=== PATIENT | male | born 1975 | race Hispanic/Latino ===

== ENCOUNTER 2019-06-27 04:44 | Inpatient (IN) | payer OTHER ==
[~2019-06-27] VITALS: Ht 175.3 cm; Wt 202.8 kg
[~2019-06-27 04:44] MED LIST: DILT120C89 PO; FURO40TA7 PO; RIVA20TA PO
[2019-06-27] MEDS ORDERED: DILTIAZEM HCL 125 MG/25 ML VIAL IV ONE ×2 (05:30→05:35)
[2019-06-27] MEDS ORDERED: SODIUM CHLORIDE 0.9% 100 ML IV ONE (05:33)
[2019-06-27] MEDS ORDERED: SODIUM CHLORIDE 0.9% 1000ML 0 ML IV ONE (05:38)
[2019-06-27 05:39] LABS: BASOPHILS % (AUTO) 1.1 % (0.0-5.0); EOSINOPHILS % (AUTO) 2.6 % (0.0-8.0); HEMATOCRIT 41.7 % (42-54); LYMPHOCYTES % (AUTO) 20.1 % (21.0-51.0); MEAN CORPUSCULAR HEMOGLOBIN 30.2 pg (27.0-33.0); MEAN CORPUSCULAR HGB CONC 32.7 g/dL (32.0-36.0); MEAN CORPUSCULAR VOLUME 92.2 fL (79-99); MONOCYTES % (AUTO) 13.5 % (3.0-13.0); NEUTROPHILS % (AUTO) 62.7 % (40.0-77.0); NUCLEATED RED BLOOD CELLS 0.1 % (0.0-0.19); PLATELET COUNT (AUTO) 254 K/uL (130-400); RED BLOOD CELL COUNT(AUTO) 4.52 MIL/uL (4.50-6.20); RED CELL DISTRIBUTION WIDTH 16.1 % (11.0-15.5)
[2019-06-27 05:43] LABS: CREATININE 0.8 mg/dL (0.5-1.5); POTASSIUM 3.8 mmol/L (3.5-5.1)
[2019-06-27 05:51] LABS: INR 1.15 (0.85-1.15); PARTIAL THROMBOPLASTIN TIME 27.5 SEC (26.3-35.5)
[2019-06-27 05:52] LABS: B-TYPE NATRIURETIC PEPTIDE 298 pg/mL (0-100)
[2019-06-27 05:57] LABS: BILIRUBIN,TOTAL 0.4 mg/dL (0.2-1.0); TOTAL PROTEIN, SERUM 6.9 g/dL (6.0-8.3)
[2019-06-27] MEDS ORDERED: LACTULOSE 20 GM/30 ML UDCUP PO PRN (07:45)
[2019-06-27] MEDS ORDERED: POTASSIUM CHLORIDE 10% ELIXIR 20 MEQ/15 ML UDCUP PO PRN (07:45)
[2019-06-27] MEDS ORDERED: ACETAMINOPHEN 325 MG TAB PO PRN ×2 (07:45)
[2019-06-27] MEDS: DILTIAZEM HCL 60 MG TABLET PO SCH ×3 (07:45→20:29)
[2019-06-27] MEDS ORDERED: ONDANSETRON HCL 4 MG/2 ML VIAL IVP PRN (07:45)
[2019-06-27] MEDS ORDERED: POTASSIUM CHLORIDE 20MEQ/100ML 100 ML IV PRN (07:45)
[2019-06-27] MEDS ORDERED: DIPHENHYDRAMINE HCL 25 MG CAPSULE PO PRN (07:45)
[2019-06-27] MEDS ORDERED: LIDOCAINE HCL-MPF 1% 2ML VIAL IJ PRN (07:45)
[2019-06-27] MEDS ORDERED: DiphenhydrAMINE HCL 50 MG/ML VIAL IVP PRN (07:45)
[2019-06-27] MEDS ORDERED: DILTIAZEM 125MG+100 ML NS 125 ML IV SCH (07:45)
[2019-06-27] MEDS: FUROSEMIDE 10 MG/ML 2ML VIAL IVP SCH ×3 (07:45→18:13)
[2019-06-27] MEDS ORDERED: HYDROCODONE/ACETAMINOPHEN 5/325 MG TAB PO PRN (08:45)
[2019-06-27] MEDS ORDERED: MORPHINE SULFATE 4 MG/1ML SYG IV PRN (08:45)
[2019-06-27] MEDS: FAMOTIDINE 20MG TAB 20 MG TAB PO SCH ×2 (09:00→20:29)
[2019-06-27] MEDS ORDERED: ENOXAPARIN SODIUM 40 MG/0.4 ML SYRINGE SQ SCH (09:00)
[2019-06-27] MEDS ORDERED: DILTIAZEM HCL 60 MG TABLET ONE ×2 (09:47→14:40)
[2019-06-27] MEDS ORDERED: FUROSEMIDE 10 MG/ML 2ML VIAL ONE (09:47)
[2019-06-27] MEDS ORDERED: IPRATROPIUM/ALBUTEROL SULFATE 3 ML SOLUTION IH PRN (10:00)
[2019-06-27 10:04] LABS: AMPHET/METH SCREEN,URINE NEGATIVE (NEGATIVE); BARBITURATE SCREEN, URINE NEGATIVE (NEGATIVE); BENZODIAZEPINES SCREEN,URINE NEGATIVE (NEGATIVE); CANNABINOID SCREEN,URINE POSITIVE (NEGATIVE); COCAINE SCREEN,URINE POSITIVE (NEGATIVE); OPIATE SCREEN,URINE NEGATIVE (NEGATIVE); PHENCYCLIDINE SCREEN,URINE NEGATIVE (NEGATIVE)
[2019-06-27] MEDS ORDERED: IPRATROPIUM/ALBUTEROL SULFATE 3 ML SOLUTION IH SCH (12:00)
[2019-06-27] MEDS: RIVAROXABAN 20 MG TABLET PO SCH (12:00)
--- NOTE | 2019-06-27 17:42 | NUR ---
cm note met with patient and states resides athome with father savanna. pt is independent with adls and ambulation, drives. provided with low income clinics info in the area, and also discussed importance of adhering to medication compliance and to abstain from alcohol and drug use, provided pt with list of resource of drug and alcohol recovery #s. [facility]. pt states he know what he needs to do and he will followup with resources. dc plan is back to home [place]. Addendum: 06/27/19 at 1744 by GUMARO APPIAH CM Amended: Links added.
[2019-06-27 17:52] VITALS: BP 131/98
--- NOTE | 2019-06-27 18:00 | NUR ---
RECEIVED FROM ED VIA STRETCHER ACCOMPANIED BY ED RN. PT. AAOX3, RESP.'S EVEN AND UNLABORED. DENIES ANY CURRENT PAIN. ORIENTED TO ROOM AND SURROUNDINGS. COMPLETE ASSESSMENT DONE. CALL LIGHT WITHIN REACH, VERBALIZED ABILITY TO USE. BED LOW, SIDE RAILS UP X2.
--- NOTE | 2019-06-27 18:15 | NUR ---
SPOKE WITH PT. RE:ALCOHOL USE, OBESITY, HEART FAILURE AND COCAINE USE, VERBALIZED UNDERSTANDING AND ALL QUESTIONS ANSWERED.
--- NOTE | 2019-06-27 18:25 | NUR ---
SPOKE WITH PT. AND PT.'S SISTER AT BEDSIDE RE:OBESITY, ALCOHOL CONSUMPTION, HEART FAILURE AND LACK OF COMPLIANCE WITH PRESCRIBED MEDICATIONS; PT. VERBALIZED UNDERSTANDING.
[2019-06-27 19:43] VITALS: BP 131/75
[2019-06-28] VITALS (8 sets, daily range): BP systolic 119–161; BP diastolic 58–95
[2019-06-28] MEDS ORDERED: FUROSEMIDE 10 MG/ML 2ML VIAL IVP SCH (02:00)
[2019-06-28] MEDS: DILTIAZEM HCL 60 MG TABLET PO SCH (03:19)
[2019-06-28 03:53] LABS: BASOPHILS % (AUTO) 0.9 % (0.0-5.0); EOSINOPHILS % (AUTO) 3.8 % (0.0-8.0); HEMATOCRIT 38.9 % (42-54); LYMPHOCYTES % (AUTO) 17.3 % (21.0-51.0); MEAN CORPUSCULAR HEMOGLOBIN 30.9 pg (27.0-33.0); MEAN CORPUSCULAR HGB CONC 33.5 g/dL (32.0-36.0); MEAN CORPUSCULAR VOLUME 92.3 fL (79-99); MONOCYTES % (AUTO) 15.1 % (3.0-13.0); NEUTROPHILS % (AUTO) 62.9 % (40.0-77.0); PLATELET COUNT (AUTO) 211 K/uL (130-400); RED BLOOD CELL COUNT(AUTO) 4.21 MIL/uL (4.50-6.20); RED CELL DISTRIBUTION WIDTH 16.2 % (11.0-15.5); WHITE BLOOD COUNT (AUTO) 7.3 K/uL (4.8-10.8)
[2019-06-28 04:06] LABS: CREATININE 0.8 mg/dL (0.5-1.5); POTASSIUM 3.4 mmol/L (3.5-5.1)
[2019-06-28] MEDS: POTASSIUM CHLORIDE 20 MEQ ERTAB PO PRN ×2 (05:37→08:17)
--- NOTE | 2019-06-28 07:17 | NUR ---
DR. Christine RODGERS IN ROOM SPEAKING WITH PT.
[2019-06-28] MEDS: FAMOTIDINE 20MG TAB 20 MG TAB PO SCH ×2 (08:15→20:06)
[2019-06-28] MEDS: FUROSEMIDE 40 MG TABLET PO SCH ×2 (08:16→16:38)
[2019-06-28] MEDS: DILTIAZEM HCL 120 MG CAP.SR.24H PO SCH (08:16)
[2019-06-28] MEDS: RIVAROXABAN 20 MG TABLET PO SCH (08:16)
[2019-06-28] MEDS ORDERED: RIVAROXABAN 20 MG TABLET PO SCH (09:00)
--- NOTE | 2019-06-28 15:40 | NUR ---
RD NOTIFICATION DX: AFIB WITH RVR, HEART FAILURE. HX: MORBID OBESE, HTN, DYSLIPIDEMIA. BMI IS 65.8; CLASSIFIED CLASS III MORBID OBESE. DIET: HEART HEALTHY. PO INTAKE 100% AND HAS GREAT APPETITE PER PT. TOLERATING DIET WELL. PT DOES NOT COOK AT HOME. HE USUALLY EATS FAST FOOD, OR IF HIS FAMILY COOKS THEY INVITE HIM OVER TO EAT. PT EATS 3-4 MEALS EVERYDAY. HE HAS NEVER TALKED TO A IGNITER ASSEMBLER/ RD IN THE PAST ABOUT HIS DIET PATTERNS. RD PROVIDED PT WITH HEART HEALTHY AND HEALTHY EATING DIET AND NUTRITION EDUCATION. PT ASKED QUESTIONS AND VERBALIZED UNDERSTANDING. HANDOUTS WERE LEFT WITH PT TO TAKE HOME AND USE REFERENCE. RD RECOMMENDS TO CONTINUE CURRENT DIET. RD PROVIDED HEALTHY EATING AND HEART HEALTHY DIET AND NUTRITION EDUCATION. RD WILL CONTINUE TO MONITOR AND FOLLOW UP NEEDED. THANK YOU. Addendum: 06/28/19 at [address] Amended: Links added.
--- NOTE | 2019-06-28 15:41 | NUR ---
DIET EDUCATION PT DOES NOT COOK AT HOME. HE USUALLY EATS FAST FOOD, OR IF HIS FAMILY COOKS THEY INVITE HIM OVER TO EAT. PT EATS 3-4 MEALS EVERYDAY. HE HAS NEVER TALKED TO A FACILITIES TECHNICIAN/ RD IN THE PAST ABOUT HIS DIET PATTERNS. EDWARD PROVIDED PT WITH HEART HEALTHY AND HEALTHY EATING DIET AND NUTRITION EDUCATION. PT ASKED QUESTIONS AND VERBALIZED UNDERSTANDING. HANDOUTS WERE LEFT WITH PT TO TAKE HOME AND USE REFERENCE. Addendum: 06/28/19 at [address] RD Amended: Links added.
[2019-06-29 03:55] VITALS: BP 137/70
[2019-06-29 03:55] LABS: HEMATOCRIT 39.6 % (42-54); LYMPHOCYTES % (AUTO) 19.5 % (21.0-51.0); MEAN CORPUSCULAR HEMOGLOBIN 30.4 pg (27.0-33.0); MEAN CORPUSCULAR HGB CONC 33.3 g/dL (32.0-36.0); MEAN CORPUSCULAR VOLUME 91.2 fL (79-99); MONOCYTES % (AUTO) 14.3 % (3.0-13.0); NEUTROPHILS % (AUTO) 62.2 % (40.0-77.0); NUCLEATED RED BLOOD CELLS 0.1 % (0.0-0.19); PLATELET COUNT (AUTO) 236 K/uL (130-400); RED BLOOD CELL COUNT(AUTO) 4.35 MIL/uL (4.50-6.20); RED CELL DISTRIBUTION WIDTH 15.9 % (11.0-15.5); WHITE BLOOD COUNT (AUTO) 7.5 K/uL (4.8-10.8)
[2019-06-29 04:14] LABS: BILIRUBIN,TOTAL 0.7 mg/dL (0.2-1.0); CREATININE 0.7 mg/dL (0.5-1.5); POTASSIUM 3.4 mmol/L (3.5-5.1); TOTAL PROTEIN, SERUM 7.2 g/dL (6.0-8.3)
[2019-06-29 04:23] LABS: B-TYPE NATRIURETIC PEPTIDE 67 pg/mL (0-100)
[2019-06-29] MEDS: POTASSIUM CHLORIDE 20 MEQ ERTAB PO PRN (05:36)
[2019-06-29 06:55] VITALS: BP 137/80
--- NOTE | 2019-06-29 07:45 | NUR ---
ASSESSMENT PT IS AAOX4 DENIES CP DENIES SOB DENIES NV NO COMPLAINTS, BREATHING PATTERN IS EVEN AND UNLABORED. RESTING IN BED. CALL LIGHT WITHIN REACH.
[2019-06-29] MEDS: DILTIAZEM HCL 120 MG CAP.SR.24H PO SCH (08:11)
[2019-06-29] MEDS: FAMOTIDINE 20MG TAB 20 MG TAB PO SCH (08:11)
[2019-06-29] MEDS: RIVAROXABAN 20 MG TABLET PO SCH (08:12)
[2019-06-29] MEDS: FUROSEMIDE 40 MG TABLET PO SCH (08:12)
[2019-06-29] MEDS ORDERED: POTASSIUM CHLORIDE 20 MEQ ERTAB PO SCH (09:00)
[2019-06-29] MEDS ORDERED: DILT120C89 PO ×2 (10:09)
[2019-06-29 10:56] VITALS: BP 126/80
--- NOTE | 2019-06-29 12:30 | NUR ---
DISCHARGE PT VERBALIZES DC INSTRUCTIONS UNDERSTANDING AGREES TO FOLLOW UP WITH DR RODGERS AND TAKE HIS MEDS ORDERED. ALL QUESTIONS ANSWERED, PIV REMOVED CATH TIP INTACT, TELE PACK REMOVED. ALL BELONGINGS GATHERED. DOWN VIA WC TO VEHICLE.
[2019-07-03] MEDS ORDERED: DILT120C12 PO ×2 (13:01)
== END 2019-06-29 13:00 | disposition home or self-care (01) | DRG 308 ==
LOC: EDH 04:44 → EDHIP 04:45 → 2DH 17:41
PROVIDERS: ADMIT Internal Medicine; ATTEND Internal Medicine
DX: I48.91 Unspecified atrial fibrillation (principal); I50.33 Acute on chronic diastolic (congestive) heart failure; E44.1 Mild protein-calorie malnutrition; Z68.44 Body mass index [BMI] 60.0-69.9, adult; M62.82 Rhabdomyolysis; I11.0 Hypertensive heart disease with heart failure; F10.10 Alcohol abuse, uncomplicated; F14.10 Cocaine abuse, uncomplicated; F19.10 Other psychoactive substance abuse, uncomplicated; G47.33 Obstructive sleep apnea (adult) (pediatric); F17.200 Nicotine dependence, unspecified, uncomplicated; E66.01 Morbid (severe) obesity due to excess calories; E78.5 Hyperlipidemia, unspecified; Z91.19 Patient's noncompliance with other medical treatment and regimen; Z91.14 Patient's other noncompliance with medication regimen; Z82.49 Family history of ischemic heart disease and other diseases of the circulatory system; Z79.01 Long term (current) use of anticoagulants
CPT/HCPCS: 36415; 71045; 80048; 80053; 80305; 82550; 82948; 83880; 84484; 85025; 85610; 85730; 93005; 94640; 94664; 99291; G0378; J1940; J3490; J7030

== ENCOUNTER 2019-06-30 15:18 | Inpatient (IN) | payer OTHER ==
[~2019-06-30] VITALS: Ht 175.3 cm; Wt 200.9 kg
[2019-06-30] MEDS ORDERED: ASPIRIN 325 MG TABLET ONE (15:23)
[2019-06-30] MEDS ORDERED: SODIUM CHLORIDE 0.9% 500 ML IV ONE (15:41)
[2019-06-30] MEDS ORDERED: DILTIAZEM HCL 125 MG/25 ML VIAL IV ONE (15:48)
[2019-06-30 16:11] LABS: BASOPHILS % (AUTO) 0.7 % (0.0-5.0); HEMATOCRIT 42.7 % (42-54); LYMPHOCYTES % (AUTO) 8.2 % (21.0-51.0); MEAN CORPUSCULAR HEMOGLOBIN 30.8 pg (27.0-33.0); MEAN CORPUSCULAR HGB CONC 33.7 g/dL (32.0-36.0); MEAN CORPUSCULAR VOLUME 91.4 fL (79-99); MONOCYTES % (AUTO) 14.9 % (3.0-13.0); NEUTROPHILS % (AUTO) 75.2 % (40.0-77.0); PLATELET COUNT (AUTO) 238 K/uL (130-400); RED BLOOD CELL COUNT(AUTO) 4.67 MIL/uL (4.50-6.20); RED CELL DISTRIBUTION WIDTH 16.1 % (11.0-15.5); WHITE BLOOD COUNT (AUTO) 10.6 K/uL (4.8-10.8)
[2019-06-30] MEDS ORDERED: DILTIAZEM 125MG+100 ML NS 125 ML IV SCH (16:15)
[2019-06-30 16:20] LABS: CREATININE 0.9 mg/dL (0.5-1.5); POTASSIUM 3.7 mmol/L (3.5-5.1)
[2019-06-30 16:21] LABS: INR 1.21 (0.85-1.15); PARTIAL THROMBOPLASTIN TIME 30.8 SEC (26.3-35.5); PROTHROMBIN TIME 12.6 SEC (9.6-11.6)
[2019-06-30 16:39] LABS: ALBUMIN 3.2 g/dL (3.5-5.0); BILIRUBIN,TOTAL 1.2 mg/dL (0.2-1.0); TOTAL PROTEIN, SERUM 7.8 g/dL (6.0-8.3)
[2019-06-30] MEDS ORDERED: NITROGLYCERIN 1GM/1 INCH PACKET TD ONE (16:46)
[2019-06-30] MEDS ORDERED: ACETAMINOPHEN 325 MG TAB PO PRN (19:00)
[2019-06-30] MEDS ORDERED: LACTULOSE 20 GM/30 ML UDCUP PO PRN (19:00)
[2019-06-30] MEDS ORDERED: ONDANSETRON HCL 4 MG/2 ML VIAL IV PRN (19:00)
[2019-06-30] MEDS ORDERED: HYDROCODONE/ACETAMINOPHEN 5/325 MG TAB PO PRN (19:00)
[2019-06-30] MEDS ORDERED: METOPROLOL TARTRATE 1 MG/ML 5ML VIAL IV PRN (19:15)
[2019-06-30] MEDS ORDERED: HYDRALAZINE HCL 20 MG/ML VIAL IV PRN (19:15)
[2019-06-30 20:14] LABS: AMPHET/METH SCREEN,URINE NEGATIVE (NEGATIVE); BARBITURATE SCREEN, URINE NEGATIVE (NEGATIVE); BENZODIAZEPINES SCREEN,URINE NEGATIVE (NEGATIVE); CANNABINOID SCREEN,URINE POSITIVE (NEGATIVE); COCAINE SCREEN,URINE POSITIVE (NEGATIVE); OPIATE SCREEN,URINE NEGATIVE (NEGATIVE); PHENCYCLIDINE SCREEN,URINE NEGATIVE (NEGATIVE)
[2019-06-30] MEDS ORDERED: FAMOTIDINE/PF 20 MG/2 ML VIAL IV SCH (21:00)
--- NOTE | 2019-06-30 21:00 | NUR ---
Patient arrived on unit with cardizem drip 10ml/hr. HR Afib RVR 94-120. Patient a/ox3. Brady chest pain. SOB after 3 words. Neb tx scheduled. Patient obese with 3+ pitting edema to bilateral feet. will continue to monitor
[2019-06-30 21:11] VITALS: BP 156/97
[2019-06-30] MEDS: IPRATROPIUM/ALBUTEROL SULFATE 3 ML SOLUTION IH PRN (22:21)
[2019-06-30 23:00] VITALS: BP 108/62
[2019-07-01] VITALS (7 sets, daily range): BP systolic 115–158; BP diastolic 54–99
[2019-07-01 03:37] LABS: BASOPHILS % (AUTO) 0.5 % (0.0-5.0); HEMATOCRIT 40.4 % (42-54); MEAN CORPUSCULAR HEMOGLOBIN 30.3 pg (27.0-33.0); MEAN CORPUSCULAR HGB CONC 33.3 g/dL (32.0-36.0); MEAN CORPUSCULAR VOLUME 91.1 fL (79-99); MONOCYTES % (AUTO) 15.4 % (3.0-13.0); NEUTROPHILS % (AUTO) 67.1 % (40.0-77.0); PLATELET COUNT (AUTO) 224 K/uL (130-400); RED BLOOD CELL COUNT(AUTO) 4.44 MIL/uL (4.50-6.20); RED CELL DISTRIBUTION WIDTH 15.9 % (11.0-15.5); WHITE BLOOD COUNT (AUTO) 8.8 K/uL (4.8-10.8)
[2019-07-01 04:00] LABS: ALBUMIN 2.9 g/dL (3.5-5.0); CREATININE 0.8 mg/dL (0.5-1.5); POTASSIUM 3.4 mmol/L (3.5-5.1); TOTAL PROTEIN, SERUM 7.1 g/dL (6.0-8.3)
[2019-07-01] MEDS: IPRATROPIUM/ALBUTEROL SULFATE 3 ML SOLUTION IH PRN ×2 (06:11→19:16)
--- NOTE | 2019-07-01 09:00 | NUR ---
AM ASSESSMENT PT LAYING IN BED, HOB ELEVATED 30 DEGREES, RESTING. A/O X 3. SOB ON EXERTION. NO DISTRESS NOTED. DENIES CHEST PAIN OR DISCOMFORT. DENIES PALPITATIONS. TELE: AFIB 80s. DENIES N/V AND/OR DIARRHEA. CARDIZEM GTT INFUSING @ 5 MG/HR. OBESE. UP W/ASSISTANCE. INSTRUCTED TO CALL FOR ASSISTANCE. CALL FANNY W/IN REACH.
[2019-07-01] MEDS: RIVAROXABAN 20 MG TABLET PO SCH (09:08)
[2019-07-01] MEDS: FUROSEMIDE 40 MG TABLET PO SCH (09:09)
[2019-07-01] MEDS: FAMOTIDINE 20MG TAB 20 MG TAB PO SCH ×2 (09:09→20:21)
[2019-07-01] MEDS: DILTIAZEM HCL 120 MG CAP.SR.24H PO SCH (09:09)
[2019-07-01] MEDS: ASPIRIN 81MG TAB.CHEW PO SCH (09:10)
--- NOTE | 2019-07-01 10:00 | NUR ---
STATUS CARDIZEM GTT DISCONTINUED @ THIS TIME. AFIB 80s. PT ON CARDIZEM PO.
--- NOTE | 2019-07-01 15:26 | NUR ---
DC PLAN VISITED WITH PATIENT. PATIENT LIVES WITH FATHER. INDEPENDENT ABLE TO PERFORM ADL'S. PATIENT HAS NO SERVICES OR DME'S. ASKED ABOUT LIC PACKET GIVEN LAST ADMISSION SAID THAT HE LEFT IT IN ROOM. ANOTHER PACKET GIVEN. Addendum: 07/01/19 at 1530 by MELANY CLEANING RN CM Amended: Links added.
--- NOTE | 2019-07-01 19:34 | NUR ---
ASSESSMENT PATIENT IS RESTING IN BED. ALERT AND ORIENTED X4. NO COMPLAINTS OF PAIN AT THIS TIME. NO SIGNS OF DISTRESS. NO SHORTNESS OF BREATH AT THIS TIME. PATIENTS CALL LIGHT AND BEDSIDE TABLE IS WITHIN REACH. PATIENT VOICES NO COMPLAINTS, CONCERNS, QUESTIONS, OR NEEDS AT THIS TIME. REINFORCED PATIENT TO CALL IF ANY NEEDS.
[2019-07-02 03:52] LABS: BASOPHILS % (AUTO) 0.4 % (0.0-5.0); EOSINOPHILS % (AUTO) 1.6 % (0.0-8.0); HEMATOCRIT 39.5 % (42-54); MEAN CORPUSCULAR HEMOGLOBIN 30.7 pg (27.0-33.0); MEAN CORPUSCULAR HGB CONC 33.8 g/dL (32.0-36.0); MEAN CORPUSCULAR VOLUME 90.8 fL (79-99); MONOCYTES % (AUTO) 15.2 % (3.0-13.0); NEUTROPHILS % (AUTO) 71.8 % (40.0-77.0); NUCLEATED RED BLOOD CELLS 0.1 % (0.0-0.19); PLATELET COUNT (AUTO) 211 K/uL (130-400); RED BLOOD CELL COUNT(AUTO) 4.35 MIL/uL (4.50-6.20); RED CELL DISTRIBUTION WIDTH 15.8 % (11.0-15.5); WHITE BLOOD COUNT (AUTO) 10.3 K/uL (4.8-10.8)
[2019-07-02 04:00] VITALS: BP 101/76
[2019-07-02 04:17] LABS: ALBUMIN 2.8 g/dL (3.5-5.0); BILIRUBIN,TOTAL 1.2 mg/dL (0.2-1.0); CREATININE 0.8 mg/dL (0.5-1.5); POTASSIUM 3.7 mmol/L (3.5-5.1); TOTAL PROTEIN, SERUM 7.3 g/dL (6.0-8.3)
[2019-07-02] MEDS: IPRATROPIUM/ALBUTEROL SULFATE 3 ML SOLUTION IH PRN ×2 (06:26→17:51)
[2019-07-02 07:05] VITALS: BP 108/65
--- NOTE | 2019-07-02 08:00 | NUR ---
AM ASSESSMENT PT SITTING IN BED, SPEAKING ON CELL PHONE. A/O X 3. SOB ON EXERTION. NO DISTRESS NOTED. DENIES CHEST PAIN OR DISCOMFORT. DENIES PALPITATIONS. TELE: AFIB 120s. DENIES N/V AND/OR DIARRHEA. OBESE. UP W/ASSISTANCE. INSTRUCTED TO CALL FOR ASSISTANCE. CALL FANNY W/IN REACH.
[2019-07-02] MEDS: ASPIRIN 81MG TAB.CHEW PO SCH (08:03)
[2019-07-02] MEDS: FUROSEMIDE 40 MG TABLET PO SCH (08:03)
[2019-07-02] MEDS: DILTIAZEM HCL 120 MG CAP.SR.24H PO SCH (08:03)
[2019-07-02] MEDS: FAMOTIDINE 20MG TAB 20 MG TAB PO SCH ×2 (08:03→20:22)
[2019-07-02] MEDS: RIVAROXABAN 20 MG TABLET PO SCH (09:09)
[2019-07-02 11:00] VITALS: BP 137/72
[2019-07-02 15:54] VITALS: BP 144/76
[2019-07-02] MEDS: DILTIAZEM HCL 60 MG TABLET PO SCH ×2 (15:57→20:22)
[2019-07-02 19:16] VITALS: BP 150/87
--- NOTE | 2019-07-02 19:30 | NUR ---
ASSESSMENT PATIENT IS RESTING IN BED. ALERT AND ORIENTED X4. NO SIGNS OF DISTRESS. NO COMPLAINTS OF PAIN. NO SHORTNESS OF BREATH. PATIENTS HR IS CURRENTLY IN CONTROL AT A RATE OF 90. FAMILY IS AT BEDSIDE. CALL LIGHT WITHIN REACH. BEDSIDE TABLE WITHIN REACH. REINFORCED PATIENT TO CALL FOR ANY NEEDS. NO QUESTIONS, CONCERNS, OR NEEDS AT THIS TIME.
[2019-07-02] MEDS: IPRATROPIUM 0.5 MG/2.5 ML INH IH SCH (21:07)
[2019-07-02 23:49] VITALS: BP 104/56
[2019-07-03] MEDS: IPRATROPIUM 0.5 MG/2.5 ML INH IH SCH ×4 (01:17→13:37)
[2019-07-03 03:56] VITALS: BP 133/68
[2019-07-03 04:53] LABS: BASOPHILS % (AUTO) 0.5 % (0.0-5.0); EOSINOPHILS % (AUTO) 3.1 % (0.0-8.0); HEMATOCRIT 38.7 % (42-54); LYMPHOCYTES % (AUTO) 15.8 % (21.0-51.0); MEAN CORPUSCULAR HEMOGLOBIN 30.5 pg (27.0-33.0); MEAN CORPUSCULAR HGB CONC 33.4 g/dL (32.0-36.0); MEAN CORPUSCULAR VOLUME 91.3 fL (79-99); MONOCYTES % (AUTO) 16.6 % (3.0-13.0); PLATELET COUNT (AUTO) 217 K/uL (130-400); RED BLOOD CELL COUNT(AUTO) 4.24 MIL/uL (4.50-6.20); RED CELL DISTRIBUTION WIDTH 15.6 % (11.0-15.5)
[2019-07-03 05:07] LABS: ALBUMIN 2.6 g/dL (3.5-5.0); BILIRUBIN,TOTAL 1.1 mg/dL (0.2-1.0); CREATININE 0.7 mg/dL (0.5-1.5); POTASSIUM 3.4 mmol/L (3.5-5.1); TOTAL PROTEIN, SERUM 6.8 g/dL (6.0-8.3)
[2019-07-03 07:05] VITALS: BP 136/92
--- NOTE | 2019-07-03 07:20 | NUR ---
MD VISIT DR AMADO TAYLOR @ THIS TIME. NOTIFIED OF CARDIOLOGY CONSULT.
--- NOTE | 2019-07-03 07:45 | NUR ---
AM ASSESSMENT PT SITTING IN BED. FAMILY @ BEDSIDE. A/O X 3. SON ON EXERTION. NO DISTRESS NOTED. DENIES CHEST PAIN OR DISCOMFORT. DENIES PALPITATIONS. TELE: AFIB 90-100s. DENIES N/V AND/OR DIARRHEA. UP W/ASSISTANCE. CALL FANNY W/IN REACH.
--- NOTE | 2019-07-03 08:05 | NUR ---
MD VISIT SANCHEZ IN TO SEE PT. UPDATED ON PT'S STATUS & PLAN OF CARE REVIEWED. MD REINFORCED TAKING MEDICATIONS PRESCRIBED TO PREVENT RECURRING AFIB W/RVR. PT RESPONDED TO MD, UNABLE TO BUY MEDICATIONS BECAUSE "I HAVE NO MONEY." ALSO INFORMED PT OF THE EFFECT COCAINE USE HAS ON THE HEART & HEART RATE. PT DENIES USING COCAINE PRIOR TO BEING ADMITTED. UDS (+) COCAINE.
[2019-07-03] MEDS: FAMOTIDINE 20MG TAB 20 MG TAB PO SCH (08:35)
[2019-07-03] MEDS: ASPIRIN 81MG TAB.CHEW PO SCH (08:35)
[2019-07-03] MEDS: FUROSEMIDE 40 MG TABLET PO SCH (08:35)
[2019-07-03] MEDS: RIVAROXABAN 20 MG TABLET PO SCH (08:36)
[2019-07-03] MEDS: DILTIAZEM HCL 60 MG TABLET PO SCH ×2 (08:36→13:23)
[2019-07-03 11:05] VITALS: BP 160/92
[2019-07-03] MEDS ORDERED: DILT120C12 PO (13:01)
[2019-07-03] MEDS: IPRATROPIUM/ALBUTEROL SULFATE 3 ML SOLUTION IH PRN (13:36)
--- NOTE | 2019-07-03 14:40 | NUR ---
DISCHARGE VERBAL & WRITTEN DISCHARGE INSTRUCTIONS REVIEWED & GIVEN TO PT. QUESTIONS ENCOURAGED & CLARIFIED. PROPER CARE & MGT OF CHEST PAIN/AFIB REVIEWED. NEW PRESCRIBED MEDICATIONS REVIEWED. PRESCRIPTION GIVEN TO PT; SIGNED COPY PLACED IN CHART. DOSE & FREQUENCY CHANGES IN HOME MEDICATIONS REVIEWED. COUPON FOR CARDIZEM GIVEN TO PT BY DR DILL. PT REMINDED TO KEEP ALREADY SCHEDULED APPT W/DR RODGERS. INFORMATION HIGHLIGHTED ON DC PAPERWORK. TELE RENATO REMOVED. IV DISCONTINUED. PT TO GATHER PERSONAL BELONGINGS. WILL NOTIFY STAFF WHEN READY TO BE TAKEN TO PRIVATE VEHICLE.
--- NOTE | 2019-07-03 14:55 | NUR ---
DISCHARGE PT TAKEN TO PRIVATE VEHICLE VIA WC BY Chencho CHAMBERLAIN RN. NO DISTRESS NOTED.
== END 2019-07-03 14:50 | disposition home or self-care (01) | DRG 308 ==
LOC: EDH 15:18 → EDHIP 15:19 → 2DH 21:11
PROVIDERS: ADMIT Family Medicine; ATTEND Family Medicine
DX: I48.91 Unspecified atrial fibrillation (principal); I50.23 Acute on chronic systolic (congestive) heart failure; Z68.44 Body mass index [BMI] 60.0-69.9, adult; M62.82 Rhabdomyolysis; E66.01 Morbid (severe) obesity due to excess calories; I11.0 Hypertensive heart disease with heart failure; E78.5 Hyperlipidemia, unspecified; F12.10 Cannabis abuse, uncomplicated; F14.10 Cocaine abuse, uncomplicated; Z79.01 Long term (current) use of anticoagulants; Z88.1 Allergy status to other antibiotic agents; Z91.14 Patient's other noncompliance with medication regimen; Z91.19 Patient's noncompliance with other medical treatment and regimen
CPT/HCPCS: 36415; 71045; 80053; 80305; 82550; 83880; 84484; 85025; 85610; 85730; 93005; 94640; 94664; 99291; G0378; G0480; J3490; J7030

== ENCOUNTER 2019-09-15 21:12 | Inpatient (IN) | payer SELFPAY ==
[~2019-09-15] VITALS: Ht 175.3 cm; Wt 205.3 kg
[~2019-09-15 21:12] MED LIST changes: +DILT120C12 PO; -DILT120C89 PO
[2019-09-15] MEDS ORDERED: IPRATROPIUM/ALBUTEROL SULFATE 3 ML SOLUTION IH ONE (21:51)
[2019-09-15 21:54] LABS: HEMATOCRIT 42.4 % (42-54); MEAN CORPUSCULAR HEMOGLOBIN 28.6 pg (27.0-33.0); MEAN CORPUSCULAR VOLUME 90.4 fL (79-99); RED BLOOD CELL COUNT(AUTO) 4.69 MIL/uL (4.50-6.20); WHITE BLOOD COUNT (AUTO) 8.2 K/uL (4.8-10.8)
[2019-09-15 21:55] LABS: BASOPHILS % (AUTO) 0.6 % (0.0-5.0); EOSINOPHILS % (AUTO) 2.9 % (0.0-8.0); LYMPHOCYTES % (AUTO) 15.7 % (21.0-51.0); MEAN CORPUSCULAR HGB CONC 31.6 g/dL (32.0-36.0); MONOCYTES % (AUTO) 12.9 % (3.0-13.0); NEUTROPHILS % (AUTO) 67.5 % (40.0-77.0); PLATELET COUNT (AUTO) 228 K/uL (130-400); RED CELL DISTRIBUTION WIDTH 16.5 % (11.0-15.5)
[2019-09-15 22:07] LABS: ABG BASE EXCESS 0.7 mmol/L (-2.0-3.0); ABG HCO3 26.8 mmol/L (21.0-28.0); ABG OXYGEN SATURATION 97.3 % (95.0-99.0); ABG PCO2 49 mmHg (35-48)
[2019-09-15 22:09] LABS: CREATININE 0.9 mg/dL (0.5-1.5); POTASSIUM 3.9 mmol/L (3.5-5.1)
[2019-09-15 22:14] LABS: BILIRUBIN,TOTAL 0.6 mg/dL (0.2-1.0); TOTAL PROTEIN, SERUM 7.2 g/dL (6.0-8.3)
[2019-09-15] MEDS ORDERED: CEFTRIAXONE SODIUM 1 GM ONE (22:15)
[2019-09-15] MEDS ORDERED: FUROSEMIDE 10 MG/ML 4ML VIAL ONE (22:16)
[2019-09-15] MEDS ORDERED: AZITHROMYCIN 250 MG TABLET PO ONE (22:16)
[2019-09-15 22:22] LABS: B-TYPE NATRIURETIC PEPTIDE 329 pg/mL (0-100)
[2019-09-15] MEDS ORDERED: DILTIAZEM HCL 5 MG/ML 5 ML VIAL IVP ONE (22:22)
[2019-09-15] MEDS ORDERED: DILTIAZEM HCL 125 MG/25 ML VIAL IV ONE (22:22)
[2019-09-15] MEDS ORDERED: SODIUM CHLORIDE 0.9% 100 ML IV ONE (22:22)
[2019-09-15 22:24] LABS: INR 1.11 (0.85-1.15); PARTIAL THROMBOPLASTIN TIME 26.1 SEC (26.3-35.5); PROTHROMBIN TIME 11.6 SEC (9.6-11.6)
[2019-09-16 04:50] LABS: AMPHET/METH SCREEN,URINE NEGATIVE (NEGATIVE); BARBITURATE SCREEN, URINE NEGATIVE (NEGATIVE); BENZODIAZEPINES SCREEN,URINE NEGATIVE (NEGATIVE); CANNABINOID SCREEN,URINE POSITIVE (NEGATIVE); COCAINE SCREEN,URINE POSITIVE (NEGATIVE); OPIATE SCREEN,URINE NEGATIVE (NEGATIVE); PHENCYCLIDINE SCREEN,URINE NEGATIVE (NEGATIVE)
[2019-09-16 04:57] LABS: APPEARANCE,URINE Clear (CLEAR); BILIRUBIN,URINE Negative (NEGATIVE); COLOR,URINE Yellow (YELLOW); GLUCOSE, URINE (UA) Negative (NEGATIVE); KETONES,URINE Negative (NEGATIVE); LEUKOCYTE ESTERASE ,URINE Negative (NEGATIVE); NITRATE,URINE Negative (NEGATIVE); OCCULT BLOOD,URINE Negative (NEGATIVE); PH,URINE 6.5 (5.0-8.0); PROTEIN,URINE Negative (NEGATIVE)
[2019-09-16] MEDS ORDERED: DILTIAZEM HCL 125 MG/25 ML VIAL IV ONE (08:29)
[2019-09-16] MEDS ORDERED: SODIUM CHLORIDE 0.9% 100 ML IV ONE (08:29)
[2019-09-16] MEDS ORDERED: FUROSEMIDE 10 MG/ML 4ML VIAL IV SCH (09:15)
[2019-09-16] MEDS ORDERED: FUROSEMIDE 10 MG/ML 4ML VIAL ONE (09:19)
[2019-09-16] MEDS: FUROSEMIDE 10 MG/ML 4ML VIAL IVP SCH ×2 (10:05→21:27)
[2019-09-16] MEDS ORDERED: ONDANSETRON HCL 4 MG/2 ML VIAL IVP PRN (10:15)
[2019-09-16] MEDS ORDERED: ACETAMINOPHEN 325 MG TAB PO PRN (10:15)
[2019-09-16] MEDS ORDERED: IPRATROPIUM/ALBUTEROL SULFATE 3 ML SOLUTION IH SCH (14:00)
[2019-09-16 17:16] VITALS: BP 134/94
[2019-09-16] MEDS: DILTIAZEM 125MG+100 ML NS 125 ML IV SCH (17:27)
[2019-09-16] MEDS: IPRATROPIUM/ALBUTEROL SULFATE 3 ML SOLUTION IH SCH ×2 (18:13→23:26)
[2019-09-16 19:00] VITALS: BP 144/94
[2019-09-16] MEDS ORDERED: RIVAROXABAN 20 MG TABLET PO SCH (21:00)
--- NOTE | 2019-09-16 21:00 | NUR ---
PT IS SOB, ENCOURAGED TO KEEP NASAL CANNULA ON. PT ABLE TO STAND UP. HR ELEVATES.ON CARDIZEM DRIP.CURRENTLY FIB 100'S. PT ABLE TO TAKE MEDS GIVEN.
[2019-09-16] MEDS: METOPROLOL TARTRATE 25 MG TAB PO SCH (21:26)
[2019-09-16 23:00] VITALS: BP 110/64
[2019-09-17 03:00] VITALS: BP 121/84
--- NOTE | 2019-09-17 03:49 | NUR ---
PT AT THIS TIME AFIB 70'S. 2.3 SEC PAUSE. STOPPED CARDIZEM DRIP.
[2019-09-17] MEDS: IPRATROPIUM/ALBUTEROL SULFATE 3 ML SOLUTION IH SCH ×4 (06:00→23:11)
[2019-09-17] MEDS: METOPROLOL TARTRATE 25 MG TAB PO SCH ×3 (06:27→21:40)
[2019-09-17 06:51] LABS: HEMATOCRIT 44.3 % (42-54); MEAN CORPUSCULAR HEMOGLOBIN 28.5 pg (27.0-33.0); MEAN CORPUSCULAR HGB CONC 31.6 g/dL (32.0-36.0); PLATELET COUNT (AUTO) 279 K/uL (130-400); RED BLOOD CELL COUNT(AUTO) 4.92 MIL/uL (4.50-6.20); RED CELL DISTRIBUTION WIDTH 16.7 % (11.0-15.5); WHITE BLOOD COUNT (AUTO) 7.9 K/uL (4.8-10.8)
[2019-09-17 07:15] LABS: CREATININE 0.8 mg/dL (0.5-1.5); POTASSIUM 3.4 mmol/L (3.5-5.1)
[2019-09-17 08:06] VITALS: BP 131/95
[2019-09-17] MEDS: RIVAROXABAN 20 MG TABLET PO SCH (09:39)
[2019-09-17] MEDS: FUROSEMIDE 10 MG/ML 4ML VIAL IVP SCH ×2 (09:39→21:40)
[2019-09-17 09:43] LABS: EOSINOPHILS % (MANUAL) 5 % (1-6); LYMPHOCYTES % (MANUAL) 16 % (22-44); MAN.DIFF COMMENT-IMPRESSION MANUAL DIFFERENTIAL; MONOCYTES % (MANUAL) 10 % (2-9); PLATELET MORPHOLOGY COMMENT ADEQUATE; SEGMENTED NEUTROPHILS % 69 % (40-70)
[2019-09-17 11:44] VITALS: BP 112/76
[2019-09-17] MEDS: DILTIAZEM 125MG+100 ML NS 125 ML IV SCH (14:28)
[2019-09-17] MEDS ORDERED: LIDOCAINE HCL-MPF 1% 2ML VIAL IV PRN (15:15)
[2019-09-17] MEDS ORDERED: POTASSIUM CHLORIDE 20MEQ/100ML 100 ML IV PRN (15:15)
[2019-09-17] MEDS ORDERED: POTASSIUM CHLORIDE 10% ELIXIR 20 MEQ/15 ML UDCUP PO PRN (15:15)
[2019-09-17 15:30] VITALS: BP 138/87
[2019-09-17] MEDS ORDERED: MAGNESIUM 2GM PREMIX 50ML 50 ML IV PRN (15:45)
[2019-09-17] MEDS: POTASSIUM CHLORIDE 20 MEQ ERTAB PO PRN ×3 (16:13→21:40)
--- NOTE | 2019-09-17 17:00 | NUR ---
PATIENT WEANED OFF CARDIZEM DRIP. TELE READS AFIB 80-90'S.
--- NOTE | 2019-09-17 17:12 | NUR ---
DR. VAZQUEZ IS MAKING HIS ROUNDS.
[2019-09-17 19:26] VITALS: BP 133/81
[2019-09-17] MEDS: AZITHROMYCIN 500MG+NS 250ML 250 ML IV SCH (21:40)
[2019-09-17] MEDS: CEFTRIAXONE SODIUM 1 GM IVP SCH (21:40)
[2019-09-18] VITALS (7 sets, daily range): BP systolic 125–150; BP diastolic 77–116
--- NOTE | 2019-09-18 | NUR ---
PT HAS SUSTAINED AFIB 100 OR LOWER. CONTINUES WITH AUDIBLE WHEEZING. EDEMATOUS. IV PATENT. ABLE TO TAKE MEDICATIONS DIRECTED.
[2019-09-18 04:36] LABS: MEAN CORPUSCULAR HEMOGLOBIN 28.6 pg (27.0-33.0); MEAN CORPUSCULAR HGB CONC 32.2 g/dL (32.0-36.0); MEAN CORPUSCULAR VOLUME 88.8 fL (79-99); PLATELET COUNT (AUTO) 275 K/uL (130-400); RED BLOOD CELL COUNT(AUTO) 5.07 MIL/uL (4.50-6.20); RED CELL DISTRIBUTION WIDTH 16.6 % (11.0-15.5); WHITE BLOOD COUNT (AUTO) 7.8 K/uL (4.8-10.8)
[2019-09-18 04:50] LABS: CARBON DIOXIDE 32 mmol/L (21-32); CHLORIDE 102 mmol/L (101-111); CREATININE 0.8 mg/dL (0.5-1.5); GLOMERULAR FILTR. RATE CALC 112 mL/min (>60); GLUCOSE,RANDOM 88 mg/dL (70-105); PHOSPHORUS 3.6 mg/dL (2.5-4.9); SODIUM SERUM 140 mmol/L (136-145); UREA NITROGEN, BLOOD 10 mg/dL (7-18)
[2019-09-18 04:59] LABS: B-TYPE NATRIURETIC PEPTIDE 116 pg/mL (0-100)
[2019-09-18 05:19] LABS: BAND NEUTROPHILS % (MANUAL) 3 % (0-2); EOSINOPHILS % (MANUAL) 2 % (1-6); LYMPHOCYTES % (MANUAL) 23 % (22-44); MAN.DIFF COMMENT-IMPRESSION MANUAL DIFFERENTIAL; MONOCYTES % (MANUAL) 13 % (2-9); PLATELET MORPHOLOGY COMMENT ADEQUATE; SEGMENTED NEUTROPHILS % 59 % (40-70)
[2019-09-18] MEDS: IPRATROPIUM/ALBUTEROL SULFATE 3 ML SOLUTION IH SCH ×4 (05:29→23:04)
--- NOTE | 2019-09-18 05:42 | NUR ---
PT AT THIS TIME, REFUSING DAILY WEIGHT. SPOKE TO PCP IN RUDE MANNER AND REFUSED TO STAND UP FOR WEIGHT.
[2019-09-18] MEDS: METOPROLOL TARTRATE 25 MG TAB PO SCH ×3 (06:24→21:34)
[2019-09-18] MEDS: RIVAROXABAN 20 MG TABLET PO SCH (09:37)
[2019-09-18] MEDS: FUROSEMIDE 10 MG/ML 4ML VIAL IVP SCH ×2 (09:37→20:29)
[2019-09-18] MEDS: CEFTRIAXONE SODIUM 1 GM IVP SCH (20:29)
[2019-09-18] MEDS: AZITHROMYCIN 500MG+NS 250ML 250 ML IV SCH (21:34)
[2019-09-19 03:15] VITALS: BP 137/91
[2019-09-19] MEDS: METOPROLOL TARTRATE 25 MG TAB PO SCH (05:31)
[2019-09-19] MEDS ORDERED: METOPROLOL TARTRATE 25 MG TAB ONE (06:54)
[2019-09-19] MEDS ORDERED: METOPROLOL TARTRATE 25 MG TAB PO SCH ×2 (07:00→14:00)
[2019-09-19] MEDS: IPRATROPIUM/ALBUTEROL SULFATE 3 ML SOLUTION IH SCH (07:25)
--- NOTE | 2019-09-19 08:00 | NUR ---
AWOKE PT. FROM SLEEP. ALERT AND ORIENTED X3. DENIES ANY C/O SOB, DENIES ANY CURRENT PAIN. ABD LARGE, PT. OBESE, (+) BOWEL SOUNDS, DENIES ANY C/O N/V; STATES HAD BM THIS MORNING. SPOKE WITH PT. RE:IMPORTANCE OF STOPPING COCAINE USE DUE TO CARDIAC RISKS ASSOCIATED, INCLUDING, ARRHYTHMIAS AND MYOCARDIAL INFARCT; PT. LISTENING BUT DOES NOT RESPOND TO INFORMATION PROVIDED. CALL LIGHT WITHIN REACH, VERBALIZED ABILITY TO USE.
[2019-09-19 08:07] VITALS: BP 123/75
[2019-09-19] MEDS: RIVAROXABAN 20 MG TABLET PO SCH (08:13)
[2019-09-19] MEDS ORDERED: DOXYCYCLINE HYCLATE 100 MG TABLET PO SCH (09:00)
[2019-09-19] MEDS ORDERED: FURO40TA7 PO (09:33)
[2019-09-19] MEDS ORDERED: RIVA20TA PO (09:33)
[2019-09-19] MEDS ORDERED: METO50TA18 PO (09:33)
[2019-09-19] MEDS ORDERED: DOXY100T2 PO (09:33)
--- NOTE | 2019-09-19 10:15 | NUR ---
PT. PULLED OUT HIS OWN IV. STATES,"THE DOCTOR SAID I WAS READY TO GO."
--- NOTE | 2019-09-19 10:30 | NUR ---
ASKED PT. RE:PREFERRED PHARMACY, TO UPDATE AND BE ABLE TO DISCHARGE HOME HOME. STATES,"WAIT FOR MY SON. HE'S THE ONE THAT DOES EVERYTHING. AND YOU CAN TELL HIM EVERYTHING TOO. HE'S COMING IN."
--- NOTE | 2019-09-19 10:36 | NUR ---
DC PLAN PATIENT READY FOR DISCHARGE. WANTS DISCHARGE INSTRUCTIONS. GAVE LOW INCOME MEDICATIONS LIST. Addendum: 09/19/19 at 1038 by MELANY CLEANING RN CM Amended: Links added.
--- NOTE | 2019-09-19 10:55 | NUR ---
DISCHARGE INSTRUCTIONS GIVEN TO PT. AND PT.'S SON AT BEDSIDE, VERBALIZED MUTUAL UNDERSTANDING.
--- NOTE | 2019-09-19 11:10 | NUR ---
DISCHARGED HOME VIA W/C WITH BELONGINGS ACCOMPANIED BY VESTA BERGER. AND PT.'S SON.
== END 2019-09-19 11:15 | disposition home or self-care (01) | DRG 292 ==
LOC: EDH 21:12 → EDHIP 21:13 → 2AH 09-16 16:40
PROVIDERS: ADMIT Internal Medicine; ATTEND Internal Medicine
DX: I11.0 Hypertensive heart disease with heart failure (principal); I48.20 Chronic atrial fibrillation, unspecified; D68.59 Other primary thrombophilia; Z68.44 Body mass index [BMI] 60.0-69.9, adult; I50.33 Acute on chronic diastolic (congestive) heart failure; E66.01 Morbid (severe) obesity due to excess calories; G47.33 Obstructive sleep apnea (adult) (pediatric); F14.10 Cocaine abuse, uncomplicated; E78.5 Hyperlipidemia, unspecified; F12.10 Cannabis abuse, uncomplicated; F17.210 Nicotine dependence, cigarettes, uncomplicated; J44.9 Chronic obstructive pulmonary disease, unspecified; Z79.01 Long term (current) use of anticoagulants; Z91.19 Patient's noncompliance with other medical treatment and regimen; Z88.8 Allergy status to other drugs, medicaments and biological substances
CPT/HCPCS: 36415; 36600; 71045; 80048; 80053; 80305; 81003; 82550; 82803; 83605; 83735; 83880; 84100; 84145; 84484; 85025; 85610; 85730; 87040; 87804; 93005; 93306; 94640; 94664; 99291; G0378; J0456; J0696; J1940; J3475; J3490

== ENCOUNTER 2021-02-18 16:57 | Inpatient (IN) | payer OTHER ==
[~2021-02-18] VITALS: Ht 175.3 cm; Wt 181.2 kg
[~2021-02-18 16:57] MED LIST changes: -DILT120C12 PO; +DOXY100T2 PO; +METO50TA18 PO
[2021-02-18] MEDS ORDERED: ONDANSETRON HCL 4 MG/2 ML VIAL ONE (17:50)
[2021-02-18] MEDS ORDERED: ZOSYN 3.375GM+NS 50ML 50 ML IV ONE (17:51)
[2021-02-18] MEDS ORDERED: SODIUM CHLORIDE 0.9% 50 ML IV ONE (17:51)
[2021-02-18 18:55] LABS: BASOPHILS % (AUTO) 0.5 % (0.0-5.0); EOSINOPHILS % (AUTO) 4.3 % (0.0-8.0); HEMATOCRIT 34.1 % (42-54); MEAN CORPUSCULAR HEMOGLOBIN 29.4 pg (27.0-33.0); MEAN CORPUSCULAR HGB CONC 29.9 g/dL (32.0-36.0); MEAN CORPUSCULAR VOLUME 98.3 fL (79-99); MONOCYTES % (AUTO) 10.6 % (3.0-13.0); NEUTROPHILS % (AUTO) 71.8 % (40.0-77.0); NUCLEATED RED BLOOD CELLS 0.4 % (0.0-0.19); PLATELET COUNT (AUTO) 437 K/uL (130-400); RED BLOOD CELL COUNT(AUTO) 3.47 MIL/uL (4.50-6.20); RED CELL DISTRIBUTION WIDTH 16.5 % (11.0-15.5); WHITE BLOOD COUNT (AUTO) 10.4 K/uL (4.8-10.8)
[2021-02-18 19:13] LABS: APPEARANCE,URINE Clear (CLEAR); BILIRUBIN,URINE Small (NEGATIVE); COLOR,URINE Dark Yellow (YELLOW); GLUCOSE, URINE (UA) Negative (NEGATIVE); KETONES,URINE Negative (NEGATIVE); LEUKOCYTE ESTERASE ,URINE Negative (NEGATIVE); NITRATE,URINE Negative (NEGATIVE); OCCULT BLOOD,URINE Negative (NEGATIVE); PROTEIN,URINE Trace mg/dL (NEGATIVE)
[2021-02-18 19:18] LABS: ALBUMIN 2.5 g/dL (3.5-5.0); ALCOHOL, BLOOD < 3 mg/dL (0-10); BILIRUBIN,TOTAL 0.6 mg/dL (0.2-1.0); CREATINE KINASE, TOTAL 155 U/L (21-232); CREATININE 0.7 mg/dL (0.5-1.5); CRP QUANTITATIVE 42.4 mg/L (0.00-9.0); POTASSIUM 4.1 mmol/L (3.5-5.1); TOTAL PROTEIN, SERUM 6.7 g/dL (6.0-8.3)
[2021-02-18 19:21] LABS: AMPHET/METH SCREEN,URINE NEGATIVE (NEGATIVE); BARBITURATE SCREEN, URINE NEGATIVE (NEGATIVE); BENZODIAZEPINES SCREEN,URINE POSITIVE (NEGATIVE); CANNABINOID SCREEN,URINE POSITIVE (NEGATIVE); COCAINE SCREEN,URINE NEGATIVE (NEGATIVE); OPIATE SCREEN,URINE NEGATIVE (NEGATIVE); PHENCYCLIDINE SCREEN,URINE NEGATIVE (NEGATIVE)
[2021-02-18 19:36] LABS: INR 1.04 (0.85-1.15); PROTHROMBIN TIME 11.3 SEC (9.6-11.6)
[2021-02-18 19:37] LABS: PARTIAL THROMBOPLASTIN TIME 27.5 SEC (26.3-35.5)
[2021-02-18 19:56] LABS: BACTERIA,URINE Rare /HPF (None Seen); MUCUS,URINE Moderate LPF (None Seen); RBC,URINE 0-1 /HPF (0-1); SQUAMOUS EPITHELIAL CELL,UR Rare /HPF (0-2); WBC,URINE 0-1 /HPF (0-1)
[2021-02-18 19:58] LABS: ERYTHROCYTE SEDIMENTATION RATE 28 MM/HR (0-15)
[2021-02-18] MEDS ORDERED: ACETAMINOPHEN 325 MG TAB PO PRN ×2 (21:15)
[2021-02-19] MEDS ORDERED: LEVOFLOXACIN 500 MG/D5W 100 ML 100 ML ONE (01:15)
[2021-02-19] MEDS ORDERED: CLINDAMYCIN 900 MG/D5% WATER 50 ML IV ONE ×2 (05:08→15:55)
[2021-02-19 07:11] LABS: HEMATOCRIT 35.5 % (42-54); MEAN CORPUSCULAR HEMOGLOBIN 28.9 pg (27.0-33.0); MEAN CORPUSCULAR HGB CONC 29.6 g/dL (32.0-36.0); MEAN CORPUSCULAR VOLUME 97.8 fL (79-99); NUCLEATED RED BLOOD CELLS 0.4 % (0.0-0.19); RED BLOOD CELL COUNT(AUTO) 3.63 MIL/uL (4.50-6.20); RED CELL DISTRIBUTION WIDTH 16.1 % (11.0-15.5); WHITE BLOOD COUNT (AUTO) 9.9 K/uL (4.8-10.8)
[2021-02-19 07:22] LABS: HEMOGLOBIN A1C 4.4 % (4.0-6.0)
[2021-02-19 07:27] LABS: ALBUMIN 2.5 g/dL (3.5-5.0); BILIRUBIN,TOTAL 0.6 mg/dL (0.2-1.0); CREATININE 0.7 mg/dL (0.5-1.5); POTASSIUM 4.2 mmol/L (3.5-5.1); TOTAL PROTEIN, SERUM 6.8 g/dL (6.0-8.3)
[2021-02-19] MEDS ORDERED: FAMOTIDINE 20MG TAB 20 MG TAB ONE (08:01)
[2021-02-19] MEDS ORDERED: ENOXAPARIN SODIUM 40 MG/0.4 ML SYRINGE SQ ONE (08:02)
[2021-02-19] MEDS: ENOXAPARIN SODIUM 40 MG/0.4 ML SYRINGE SQ SCH (09:00)
[2021-02-19] MEDS: FAMOTIDINE 20MG TAB 20 MG TAB PO SCH ×2 (09:00→21:13)
[2021-02-19 10:50] LABS: ABG BASE EXCESS -0.5 mmol/L (-2.0-3.0); ABG HCO3 26.9 mmol/L (21.0-28.0); ABG OXYGEN SATURATION 77.4 % (95.0-99.0); ABG PCO2 57 mmHg (35-48)
[2021-02-19] MEDS: CLINDAMYCIN 900 MG/D5% WATER 50 ML IV SCH ×3 (15:15→21:46)
[2021-02-19] MEDS ORDERED: ATENOLOL 25 MG TABLET ONE (15:55)
[2021-02-19] MEDS ORDERED: DILTIAZEM HCL 120 MG CAP.SR.24H PO ONE (15:56)
[2021-02-19 17:26] VITALS: BP 145/85
[2021-02-19] MEDS ORDERED: APIX5TAB PO (18:03)
[2021-02-19] MEDS ORDERED: MULT-1367 PO (18:03)
[2021-02-19] MEDS ORDERED: THIA100V3 PO (18:03)
[2021-02-19] MEDS ORDERED: OLAN5TAB27 PO (18:03)
[2021-02-19] MEDS ORDERED: NITR0.4T50 SL (18:03)
[2021-02-19] MEDS ORDERED: ATEN25TA PO (18:03)
[2021-02-19] MEDS ORDERED: GABA300S PO (18:03)
[2021-02-19] MEDS ORDERED: DIGO0.12 PO (18:03)
[2021-02-19] MEDS ORDERED: DILT240C46 PO (18:03)
[2021-02-19 19:45] VITALS: BP_SYST 112; BP_SYST 119; BP_DIAS 69; BP_DIAS 73
[2021-02-19 23:22] VITALS: BP 135/77
[2021-02-20] MEDS: CLINDAMYCIN 900 MG/D5% WATER 50 ML IV SCH ×4 (03:27→21:59)
[2021-02-20 03:36] VITALS: BP 129/80
[2021-02-20] MEDS ORDERED: NITROGLYCERIN 0.4 MG SL TAB SL PRN (05:45)
[2021-02-20 05:57] LABS: BASOPHILS % (AUTO) 0.5 % (0.0-5.0); EOSINOPHILS % (AUTO) 4.8 % (0.0-8.0); MEAN CORPUSCULAR HEMOGLOBIN 28.6 pg (27.0-33.0); MEAN CORPUSCULAR HGB CONC 29.1 g/dL (32.0-36.0); MONOCYTES % (AUTO) 10.1 % (3.0-13.0); NEUTROPHILS % (AUTO) 67.9 % (40.0-77.0); PLATELET COUNT (AUTO) 398 K/uL (130-400); RED BLOOD CELL COUNT(AUTO) 3.57 MIL/uL (4.50-6.20); RED CELL DISTRIBUTION WIDTH 15.9 % (11.0-15.5); WHITE BLOOD COUNT (AUTO) 8.7 K/uL (4.8-10.8)
[2021-02-20 06:14] LABS: ALBUMIN 2.4 g/dL (3.5-5.0); BILIRUBIN,TOTAL 0.7 mg/dL (0.2-1.0); CREATININE 0.7 mg/dL (0.5-1.5); MAGNESIUM 1.8 mg/dL (1.80-2.40); POTASSIUM 3.8 mmol/L (3.5-5.1); TOTAL PROTEIN, SERUM 6.4 g/dL (6.0-8.3)
[2021-02-20 07:07] LABS: ABG BASE EXCESS 5.8 mmol/L (-2.0-3.0); ABG HCO3 33.1 mmol/L (21.0-28.0); ABG OXYGEN SATURATION 94.8 % (95.0-99.0); ABG PCO2 59 mmHg (35-48)
[2021-02-20 07:45] VITALS: BP 130/79
[2021-02-20] MEDS: FAMOTIDINE 20MG TAB 20 MG TAB PO SCH ×2 (08:34→21:29)
[2021-02-20] MEDS: DILTIAZEM HCL 120 MG CAP.SR.24H PO SCH ×2 (08:34→21:28)
[2021-02-20] MEDS: MULTIVITAMIN TABLET PO SCH (08:34)
[2021-02-20] MEDS: DIGOXIN 250 MCG TABLET PO SCH (08:35)
[2021-02-20] MEDS: OLANZAPINE 5 MG TAB PO SCH ×2 (08:35→21:29)
[2021-02-20] MEDS: ATENOLOL 25 MG TABLET PO SCH (08:36)
[2021-02-20] MEDS: ENOXAPARIN SODIUM 40 MG/0.4 ML SYRINGE SQ SCH (08:38)
[2021-02-20 12:00] VITALS: BP 119/69
[2021-02-20] MEDS ORDERED: FUROSEMIDE 40MG VIAL (10MG/ML) IVP SCH (12:30)
[2021-02-20 16:00] VITALS: BP 116/80
[2021-02-20] MEDS ORDERED: ALPRAZOLAM 0.5 MG TABLET PO PRN (16:30)
[2021-02-20] MEDS ORDERED: LACTULOSE 20 GM/30 ML UDCUP PO SCH (17:00)
[2021-02-20] MEDS: LACTULOSE 20 GM/30 ML UDCUP PO SCH ×2 (17:00→21:29)
[2021-02-20] MEDS: RIFAXIMIN 550 MG TABLET PO SCH ×2 (18:00→21:29)
[2021-02-20 19:43] VITALS: BP 135/82
[2021-02-20] MEDS ORDERED: HALOPERIDOL LACTATE 5 MG/ML VIAL IV SCH (21:45)
[2021-02-21] MEDS: CLINDAMYCIN 900 MG/D5% WATER 50 ML IV SCH ×4 (03:15→22:42)
[2021-02-21 05:53] LABS: BASOPHILS % (AUTO) 0.4 % (0.0-5.0); LYMPHOCYTES % (AUTO) 13.8 % (21.0-51.0); MEAN CORPUSCULAR HGB CONC 29.7 g/dL (32.0-36.0); MEAN CORPUSCULAR VOLUME 97.5 fL (79-99); MONOCYTES % (AUTO) 9.8 % (3.0-13.0); NEUTROPHILS % (AUTO) 72.2 % (40.0-77.0); NUCLEATED RED BLOOD CELLS 0.2 % (0.0-0.19); PLATELET COUNT (AUTO) 449 K/uL (130-400); RED BLOOD CELL COUNT(AUTO) 3.59 MIL/uL (4.50-6.20); RED CELL DISTRIBUTION WIDTH 15.9 % (11.0-15.5); WHITE BLOOD COUNT (AUTO) 10.1 K/uL (4.8-10.8)
[2021-02-21] MEDS ORDERED: HALOPERIDOL LACTATE 5 MG/ML VIAL IM SCH (06:00)
[2021-02-21 06:08] LABS: ALBUMIN 2.7 g/dL (3.5-5.0); BILIRUBIN,TOTAL 0.8 mg/dL (0.2-1.0); MAGNESIUM 1.7 mg/dL (1.80-2.40); POTASSIUM 3.6 mmol/L (3.5-5.1)
[2021-02-21 06:29] LABS: CREATININE 0.8 mg/dL (0.5-1.5)
[2021-02-21] MEDS: ATENOLOL 25 MG TABLET PO SCH (09:00)
[2021-02-21] MEDS: ENOXAPARIN SODIUM 40 MG/0.4 ML SYRINGE SQ SCH (09:00)
[2021-02-21] MEDS: OLANZAPINE 5 MG TAB PO SCH ×2 (09:00→21:00)
[2021-02-21 11:40] VITALS: BP 146/65
[2021-02-21 11:44] LABS: ABG BASE EXCESS 7.5 mmol/L (-2.0-3.0); ABG HCO3 33.5 mmol/L (21.0-28.0); ABG OXYGEN SATURATION 90.3 % (95.0-99.0); ABG PCO2 54 mmHg (35-48)
[2021-02-21] MEDS: FAMOTIDINE 20MG TAB 20 MG TAB PO SCH ×2 (13:21→21:00)
[2021-02-21] MEDS: LACTULOSE 20 GM/30 ML UDCUP PO SCH ×3 (13:21→21:00)
[2021-02-21] MEDS: RIFAXIMIN 550 MG TABLET PO SCH ×2 (13:21→21:00)
[2021-02-21] MEDS: MULTIVITAMIN TABLET PO SCH (13:22)
[2021-02-21] MEDS: DILTIAZEM HCL 120 MG CAP.SR.24H PO SCH ×2 (13:22→21:00)
[2021-02-21] MEDS: DIGOXIN 250 MCG TABLET PO SCH (13:23)
[2021-02-21 16:00] VITALS: BP 135/72
[2021-02-21] MEDS ORDERED: FOLIC ACID 1 MG TABLET PO SCH (17:15)
[2021-02-21] MEDS ORDERED: THIAMINE HCL 100 MG/ML 2ML VIAL IVP SCH (17:15)
[2021-02-21] MEDS ORDERED: MAGNESIUM 2GM PREMIX 50ML 50 ML IV SCH (17:15)
[2021-02-21 18:00] VITALS: BP 124/85
[2021-02-21] MEDS: DEXMEDETOMIDINE HCL 200 MCG in SODIUM CHLORIDE 0.9% 50 ML IV PRN ×2 (18:11→20:12)
[2021-02-21 18:15] VITALS: BP 119/63
[2021-02-21 19:00] VITALS: BP 129/65
[2021-02-21] MEDS ORDERED: DEXMEDETOMIDINE HCL 400 MCG in SODIUM CHLORIDE 0.9% 100 ML IV PRN (21:15)
[2021-02-21 23:00] VITALS: BP 122/88
[2021-02-22] VITALS (13 sets, daily range): BP systolic 114–147; BP diastolic 62–86
[2021-02-22] MEDS: DEXMEDETOMIDINE HCL 200 MCG in SODIUM CHLORIDE 0.9% 50 ML IV SCH ×2 (01:00→05:37)
[2021-02-22] MEDS: CLINDAMYCIN 900 MG/D5% WATER 50 ML IV SCH ×4 (03:20→20:09)
[2021-02-22 06:30] LABS: BASOPHILS % (AUTO) 0.9 % (0.0-5.0); EOSINOPHILS % (AUTO) 5.2 % (0.0-8.0); HEMATOCRIT 38.3 % (42-54); LYMPHOCYTES % (AUTO) 11.8 % (21.0-51.0); MEAN CORPUSCULAR HEMOGLOBIN 29.1 pg (27.0-33.0); MEAN CORPUSCULAR HGB CONC 30.3 g/dL (32.0-36.0); MEAN CORPUSCULAR VOLUME 96.2 fL (79-99); MONOCYTES % (AUTO) 10.4 % (3.0-13.0); NUCLEATED RED BLOOD CELLS 0.2 % (0.0-0.19); PLATELET COUNT (AUTO) 440 K/uL (130-400); RED BLOOD CELL COUNT(AUTO) 3.98 MIL/uL (4.50-6.20); RED CELL DISTRIBUTION WIDTH 16.2 % (11.0-15.5); WHITE BLOOD COUNT (AUTO) 8.2 K/uL (4.8-10.8)
[2021-02-22 07:39] LABS: ALBUMIN 2.8 g/dL (3.5-5.0); BILIRUBIN,TOTAL 0.8 mg/dL (0.2-1.0); MAGNESIUM 1.9 mg/dL (1.80-2.40); POTASSIUM 3.6 mmol/L (3.5-5.1); TOTAL PROTEIN, SERUM 7.6 g/dL (6.0-8.3)
[2021-02-22 08:44] LABS: CREATININE 0.7 mg/dL (0.5-1.5)
[2021-02-22] MEDS: THIAMINE HCL 100 MG/ML 2ML VIAL IVP SCH (08:59)
[2021-02-22] MEDS: FOLIC ACID 1 MG TABLET PO SCH (08:59)
[2021-02-22] MEDS: RIFAXIMIN 550 MG TABLET PO SCH ×2 (09:00→20:09)
[2021-02-22] MEDS: MULTIVITAMIN TABLET PO SCH (09:00)
[2021-02-22] MEDS: DILTIAZEM HCL 120 MG CAP.SR.24H PO SCH ×2 (09:00→20:08)
[2021-02-22] MEDS: FAMOTIDINE 20MG TAB 20 MG TAB PO SCH ×2 (09:00→20:05)
[2021-02-22] MEDS: ATENOLOL 25 MG TABLET PO SCH (09:00)
[2021-02-22] MEDS: OLANZAPINE 5 MG TAB PO SCH ×2 (09:03→20:09)
[2021-02-22] MEDS: DIGOXIN 250 MCG TABLET PO SCH (09:03)
[2021-02-22] MEDS: LACTULOSE 20 GM/30 ML UDCUP PO SCH ×3 (09:05→20:09)
[2021-02-22] MEDS: ENOXAPARIN SODIUM 40 MG/0.4 ML SYRINGE SQ SCH (09:06)
[2021-02-22] MEDS ORDERED: SODIUM CHLORIDE 0.9% 50 ML IV ONE (09:12)
[2021-02-22] MEDS ORDERED: PHARMACY COMMUNICATION MISC SCH (14:45)
[2021-02-22] MEDS: DEXMEDETOMIDINE HCL 400 MCG in SODIUM CHLORIDE 0.9% 100 ML IV SCH ×2 (15:41→23:10)
[2021-02-23] VITALS (11 sets, daily range): BP systolic 91–129; BP diastolic 42–77
[2021-02-23] MEDS: CLINDAMYCIN 900 MG/D5% WATER 50 ML IV SCH ×2 (02:28→08:26)
[2021-02-23] MEDS: ENOXAPARIN SODIUM 40 MG/0.4 ML SYRINGE SQ SCH (08:03)
[2021-02-23] MEDS: FAMOTIDINE 20MG TAB 20 MG TAB PO SCH ×2 (08:03→20:25)
[2021-02-23] MEDS: FOLIC ACID 1 MG TABLET PO SCH (08:03)
[2021-02-23] MEDS: THIAMINE HCL 100 MG/ML 2ML VIAL IVP SCH (08:04)
[2021-02-23] MEDS: RIFAXIMIN 550 MG TABLET PO SCH ×2 (08:04→20:24)
[2021-02-23] MEDS: MULTIVITAMIN TABLET PO SCH (08:04)
[2021-02-23] MEDS: DILTIAZEM HCL 120 MG CAP.SR.24H PO SCH ×2 (08:04→20:25)
[2021-02-23] MEDS: ATENOLOL 25 MG TABLET PO SCH (08:05)
[2021-02-23] MEDS: LACTULOSE 20 GM/30 ML UDCUP PO SCH ×3 (08:07→20:24)
[2021-02-23] MEDS: ONDANSETRON HCL 4 MG/2 ML VIAL IV PRN ×2 (08:22→17:44)
[2021-02-23] MEDS: DIGOXIN 250 MCG TABLET PO SCH (08:22)
[2021-02-23] MEDS: OLANZAPINE 5 MG TAB PO SCH ×2 (08:23→21:23)
[2021-02-23] MEDS: DEXMEDETOMIDINE HCL 400 MCG in SODIUM CHLORIDE 0.9% 100 ML IV SCH ×3 (08:27→17:48)
[2021-02-23] MEDS: AMOXICILLIN 500 MG CAPSULE PO SCH ×2 (14:56→20:24)
[2021-02-24] VITALS (12 sets, daily range): BP systolic 98–137; BP diastolic 56–86
[2021-02-24] MEDS: DEXMEDETOMIDINE HCL 400 MCG in SODIUM CHLORIDE 0.9% 100 ML IV SCH (03:39)
[2021-02-24 04:25] LABS: BASOPHILS % (AUTO) 0.2 % (0.0-5.0); EOSINOPHILS % (AUTO) 0.2 % (0.0-8.0); HEMATOCRIT 37.8 % (42-54); LYMPHOCYTES % (AUTO) 3.3 % (21.0-51.0); MEAN CORPUSCULAR HEMOGLOBIN 28.1 pg (27.0-33.0); MEAN CORPUSCULAR HGB CONC 30.2 g/dL (32.0-36.0); MEAN CORPUSCULAR VOLUME 93.3 fL (79-99); MONOCYTES % (AUTO) 7.4 % (3.0-13.0); NEUTROPHILS % (AUTO) 87.8 % (40.0-77.0); PLATELET COUNT (AUTO) 428 K/uL (130-400); RED BLOOD CELL COUNT(AUTO) 4.05 MIL/uL (4.50-6.20); RED CELL DISTRIBUTION WIDTH 15.7 % (11.0-15.5); WHITE BLOOD COUNT (AUTO) 22.8 K/uL (4.8-10.8)
[2021-02-24] MEDS: AMOXICILLIN 500 MG CAPSULE PO SCH ×3 (04:35→20:12)
[2021-02-24 04:59] LABS: ALBUMIN 2.3 g/dL (3.5-5.0); CREATININE 0.9 mg/dL (0.5-1.5); POTASSIUM 3.8 mmol/L (3.5-5.1); TOTAL PROTEIN, SERUM 7.1 g/dL (6.0-8.3)
[2021-02-24] MEDS: FAMOTIDINE 20MG TAB 20 MG TAB PO SCH ×2 (08:22→20:11)
[2021-02-24] MEDS: MULTIVITAMIN TABLET PO SCH (08:22)
[2021-02-24] MEDS: RIFAXIMIN 550 MG TABLET PO SCH ×2 (08:22→20:12)
[2021-02-24] MEDS: FOLIC ACID 1 MG TABLET PO SCH (08:22)
[2021-02-24] MEDS: DIGOXIN 250 MCG TABLET PO SCH (08:22)
[2021-02-24] MEDS: DILTIAZEM HCL 120 MG CAP.SR.24H PO SCH ×2 (08:23→20:12)
[2021-02-24] MEDS: THIAMINE HCL 100 MG/ML 2ML VIAL IVP SCH (08:23)
[2021-02-24] MEDS: ATENOLOL 25 MG TABLET PO SCH (08:23)
[2021-02-24] MEDS: LACTULOSE 20 GM/30 ML UDCUP PO SCH ×3 (08:24→20:11)
[2021-02-24] MEDS: OLANZAPINE 5 MG TAB PO SCH ×2 (08:24→20:12)
[2021-02-24] MEDS: ENOXAPARIN SODIUM 40 MG/0.4 ML SYRINGE SQ SCH (08:24)
[2021-02-24] MEDS: ONDANSETRON HCL 4 MG/2 ML VIAL IV PRN ×2 (09:05→15:25)
[2021-02-24] MEDS ORDERED: LORAZEPAM 2 MG/ML 1 ML VIAL IVP PRN ×2 (10:30)
[2021-02-25 03:00] VITALS: BP 128/78
[2021-02-25 03:15] VITALS: BP 155/88
[2021-02-25] MEDS: AMOXICILLIN 500 MG CAPSULE PO SCH ×3 (03:38→21:14)
[2021-02-25 07:19] VITALS: BP 142/88
[2021-02-25 08:02] LABS: ABG BASE EXCESS 5.7 mmol/L (-2.0-3.0); ABG HCO3 33.3 mmol/L (21.0-28.0); ABG PCO2 61 mmHg (35-48)
[2021-02-25] MEDS: THIAMINE HCL 100 MG/ML 2ML VIAL IVP SCH (08:23)
[2021-02-25] MEDS: LACTULOSE 20 GM/30 ML UDCUP PO SCH ×4 (08:23→21:14)
[2021-02-25] MEDS: ENOXAPARIN SODIUM 40 MG/0.4 ML SYRINGE SQ SCH (08:23)
[2021-02-25] MEDS: MULTIVITAMIN TABLET PO SCH (08:24)
[2021-02-25] MEDS: DILTIAZEM HCL 120 MG CAP.SR.24H PO SCH ×2 (08:24→21:14)
[2021-02-25] MEDS: RIFAXIMIN 550 MG TABLET PO SCH ×2 (08:24→21:14)
[2021-02-25] MEDS: FOLIC ACID 1 MG TABLET PO SCH (08:24)
[2021-02-25] MEDS: FAMOTIDINE 20MG TAB 20 MG TAB PO SCH ×2 (08:24→21:14)
[2021-02-25] MEDS: OLANZAPINE 5 MG TAB PO SCH ×2 (08:24→21:14)
[2021-02-25] MEDS: ATENOLOL 25 MG TABLET PO SCH (08:25)
[2021-02-25] MEDS: DIGOXIN 250 MCG TABLET PO SCH (08:25)
[2021-02-25 10:42] LABS: BASOPHILS % (AUTO) 0.2 % (0.0-5.0); EOSINOPHILS % (AUTO) 0.5 % (0.0-8.0); HEMATOCRIT 36.3 % (42-54); LYMPHOCYTES % (AUTO) 4.4 % (21.0-51.0); MEAN CORPUSCULAR HEMOGLOBIN 28.2 pg (27.0-33.0); MEAN CORPUSCULAR HGB CONC 29.8 g/dL (32.0-36.0); MEAN CORPUSCULAR VOLUME 94.8 fL (79-99); MONOCYTES % (AUTO) 7.3 % (3.0-13.0); NEUTROPHILS % (AUTO) 86.6 % (40.0-77.0); PLATELET COUNT (AUTO) 402 K/uL (130-400); RED BLOOD CELL COUNT(AUTO) 3.83 MIL/uL (4.50-6.20); RED CELL DISTRIBUTION WIDTH 15.5 % (11.0-15.5); WHITE BLOOD COUNT (AUTO) 20.1 K/uL (4.8-10.8)
[2021-02-25 10:58] LABS: ALBUMIN 2.4 g/dL (3.5-5.0); BILIRUBIN,TOTAL 0.6 mg/dL (0.2-1.0); CREATININE 0.8 mg/dL (0.5-1.5); MAGNESIUM 2.1 mg/dL (1.80-2.40); POTASSIUM 3.8 mmol/L (3.5-5.1); TOTAL PROTEIN, SERUM 7.3 g/dL (6.0-8.3)
[2021-02-25 11:44] VITALS: BP 151/82
[2021-02-25 13:26] LABS: APPEARANCE,URINE Clear (CLEAR); BILIRUBIN,URINE Small (NEGATIVE); COLOR,URINE Dark Yellow (YELLOW); GLUCOSE, URINE (UA) Negative (NEGATIVE); KETONES,URINE Negative (NEGATIVE); LEUKOCYTE ESTERASE ,URINE Negative (NEGATIVE); NITRATE,URINE Negative (NEGATIVE); OCCULT BLOOD,URINE Negative (NEGATIVE); PROTEIN,URINE POS 1+ mg/dL (NEGATIVE)
[2021-02-25 13:56] LABS: BACTERIA,URINE Rare /HPF (None Seen); RBC,URINE 0-1 /HPF (0-1); SQUAMOUS EPITHELIAL CELL,UR Rare /HPF (0-2); WBC,URINE 0-1 /HPF (0-1)
[2021-02-25 15:33] VITALS: BP 168/74
[2021-02-25 19:35] VITALS: BP 149/79
[2021-02-25] MEDS: FUROSEMIDE 40MG VIAL (10MG/ML) IVP SCH (21:17)
[2021-02-26] VITALS (7 sets, daily range): BP systolic 124–154; BP diastolic 69–86
[2021-02-26 04:24] LABS: BASOPHILS % (AUTO) 0.4 % (0.0-5.0); EOSINOPHILS % (AUTO) 1.7 % (0.0-8.0); HEMATOCRIT 34.9 % (42-54); LYMPHOCYTES % (AUTO) 6.5 % (21.0-51.0); MEAN CORPUSCULAR HEMOGLOBIN 28.3 pg (27.0-33.0); MEAN CORPUSCULAR HGB CONC 29.5 g/dL (32.0-36.0); MEAN CORPUSCULAR VOLUME 95.9 fL (79-99); MONOCYTES % (AUTO) 9.7 % (3.0-13.0); NEUTROPHILS % (AUTO) 80.1 % (40.0-77.0); NUCLEATED RED BLOOD CELLS 0.1 % (0.0-0.19); PLATELET COUNT (AUTO) 419 K/uL (130-400); RED BLOOD CELL COUNT(AUTO) 3.64 MIL/uL (4.50-6.20); RED CELL DISTRIBUTION WIDTH 15.5 % (11.0-15.5); WHITE BLOOD COUNT (AUTO) 15.7 K/uL (4.8-10.8)
[2021-02-26 04:34] LABS: ALBUMIN 2.3 g/dL (3.5-5.0); B-TYPE NATRIURETIC PEPTIDE 346 pg/mL (0-100); BILIRUBIN,TOTAL 0.5 mg/dL (0.2-1.0); CREATININE 0.8 mg/dL (0.5-1.5); POTASSIUM 3.4 mmol/L (3.5-5.1)
[2021-02-26] MEDS: AMOXICILLIN 500 MG CAPSULE PO SCH ×3 (04:35→19:54)
[2021-02-26] MEDS ORDERED: POTASSIUM CHLORIDE 20MEQ/100ML 100 ML IV PRN (05:45)
[2021-02-26] MEDS ORDERED: LIDOCAINE HCL-MPF 1% 2ML VIAL IV PRN (05:45)
[2021-02-26] MEDS ORDERED: POTASSIUM CHLORIDE 10% ELIXIR 20 MEQ/15 ML UDCUP PO PRN (05:45)
[2021-02-26] MEDS: KCL 20 MEQ ERTAB PO PRN ×2 (06:54→07:57)
[2021-02-26] MEDS: MULTIVITAMIN TABLET PO SCH (07:55)
[2021-02-26] MEDS: RIFAXIMIN 550 MG TABLET PO SCH ×2 (07:55→19:54)
[2021-02-26] MEDS: ENOXAPARIN SODIUM 40 MG/0.4 ML SYRINGE SQ SCH (07:55)
[2021-02-26] MEDS: FAMOTIDINE 20MG TAB 20 MG TAB PO SCH (07:56)
[2021-02-26] MEDS: FOLIC ACID 1 MG TABLET PO SCH (07:56)
[2021-02-26] MEDS: ATENOLOL 25 MG TABLET PO SCH (07:56)
[2021-02-26] MEDS: DILTIAZEM HCL 120 MG CAP.SR.24H PO SCH ×2 (07:56→19:54)
[2021-02-26] MEDS: DIGOXIN 250 MCG TABLET PO SCH (07:57)
[2021-02-26] MEDS: FUROSEMIDE 40MG VIAL (10MG/ML) IVP SCH (07:57)
[2021-02-26] MEDS: THIAMINE HCL 100 MG/ML 2ML VIAL IVP SCH (07:57)
[2021-02-26] MEDS: OLANZAPINE 5 MG TAB PO SCH ×2 (07:58→19:54)
[2021-02-26] MEDS: LACTULOSE 20 GM/30 ML UDCUP PO SCH ×2 (07:58→08:58)
[2021-02-26] MEDS: FUROSEMIDE 40 MG TABLET PO SCH ×2 (08:58→19:54)
[2021-02-26] MEDS ORDERED: METOPROLOL SUCCINATE 50 MG TAB.SR.24H PO SCH (09:00)
[2021-02-26] MEDS ORDERED: IPRATROPIUM 0.5 MG/2.5 ML INH IH PRN (09:00)
[2021-02-26] MEDS ORDERED: DIGOXIN 125 MCG TABLET PO SCH (09:00)
[2021-02-26] MEDS: SPIRONOLACTONE 25 MG TAB PO SCH (09:04)
[2021-02-26] MEDS: METOLAZONE 2.5 MG TABLET PO SCH (09:05)
[2021-02-26] MEDS: PANTOPRAZOLE SODIUM 40 MG TABLET.DR PO SCH (09:05)
[2021-02-27] VITALS (7 sets, daily range): BP systolic 109–156; BP diastolic 60–90
[2021-02-27] MEDS: AMOXICILLIN 500 MG CAPSULE PO SCH ×3 (04:00→21:15)
[2021-02-27 04:09] LABS: HEPATITIS A ANTIBODY IGM Negative (Negative); HEPATITIS B CORE IGM Negative (Negative); HEPATITIS Bs ANTIGEN SCREEN P Negative (Negative)
[2021-02-27 04:34] LABS: EOSINOPHILS % (AUTO) 2.3 % (0.0-8.0); HEMATOCRIT 35.7 % (42-54); LYMPHOCYTES % (AUTO) 10.9 % (21.0-51.0); MEAN CORPUSCULAR HEMOGLOBIN 28.1 pg (27.0-33.0); MEAN CORPUSCULAR HGB CONC 29.4 g/dL (32.0-36.0); MEAN CORPUSCULAR VOLUME 95.5 fL (79-99); MONOCYTES % (AUTO) 11.5 % (3.0-13.0); NEUTROPHILS % (AUTO) 68.8 % (40.0-77.0); NUCLEATED RED BLOOD CELLS 0.8 % (0.0-0.19); PLATELET COUNT (AUTO) 469 K/uL (130-400); RED BLOOD CELL COUNT(AUTO) 3.74 MIL/uL (4.50-6.20); RED CELL DISTRIBUTION WIDTH 15.4 % (11.0-15.5); WHITE BLOOD COUNT (AUTO) 14.3 K/uL (4.8-10.8)
[2021-02-27 04:44] LABS: ALBUMIN 2.2 g/dL (3.5-5.0); BILIRUBIN,TOTAL 0.6 mg/dL (0.2-1.0); CREATININE 0.8 mg/dL (0.5-1.5); POTASSIUM 3.4 mmol/L (3.5-5.1); TOTAL PROTEIN, SERUM 6.9 g/dL (6.0-8.3)
[2021-02-27 05:04] LABS: B-TYPE NATRIURETIC PEPTIDE 258 pg/mL (0-100)
[2021-02-27] MEDS: KCL 20 MEQ ERTAB PO PRN ×2 (05:49→10:15)
[2021-02-27] MEDS: LACTULOSE 20 GM/30 ML UDCUP PO SCH (10:14)
[2021-02-27] MEDS: THIAMINE HCL 100 MG/ML 2ML VIAL IVP SCH (10:14)
[2021-02-27] MEDS: OLANZAPINE 5 MG TAB PO SCH ×2 (10:14→21:16)
[2021-02-27] MEDS: RIFAXIMIN 550 MG TABLET PO SCH ×2 (10:15→21:16)
[2021-02-27] MEDS: METOPROLOL SUCCINATE 50 MG TAB.SR.24H PO SCH (10:15)
[2021-02-27] MEDS: METOLAZONE 2.5 MG TABLET PO SCH (10:15)
[2021-02-27] MEDS: FOLIC ACID 1 MG TABLET PO SCH (10:15)
[2021-02-27] MEDS: MULTIVITAMIN TABLET PO SCH (10:15)
[2021-02-27] MEDS: PANTOPRAZOLE SODIUM 40 MG TABLET.DR PO SCH (10:15)
[2021-02-27] MEDS: FUROSEMIDE 40 MG TABLET PO SCH ×2 (10:16→21:16)
[2021-02-27] MEDS: SPIRONOLACTONE 25 MG TAB PO SCH (10:16)
[2021-02-27] MEDS: ENOXAPARIN SODIUM 40 MG/0.4 ML SYRINGE SQ SCH (10:17)
[2021-02-27] MEDS ORDERED: DILTIAZEM HCL 120 MG CAP.SR.24H PO SCH (13:00)
[2021-02-27] MEDS ORDERED: PHARMACY COMMUNICATION MISC SCH (13:45)
[2021-02-27] MEDS: DILTIAZEM HCL 60 MG TABLET PO SCH ×2 (15:27→21:15)
[2021-02-28 04:01] VITALS: BP 118/56
[2021-02-28 04:19] LABS: BASOPHILS % (AUTO) 1.1 % (0.0-5.0); HEMATOCRIT 36.3 % (42-54); LYMPHOCYTES % (AUTO) 12.2 % (21.0-51.0); MEAN CORPUSCULAR HEMOGLOBIN 28.1 pg (27.0-33.0); MEAN CORPUSCULAR HGB CONC 30.6 g/dL (32.0-36.0); MEAN CORPUSCULAR VOLUME 91.9 fL (79-99); MONOCYTES % (AUTO) 9.8 % (3.0-13.0); NEUTROPHILS % (AUTO) 69.1 % (40.0-77.0); NUCLEATED RED BLOOD CELLS 1.6 % (0.0-0.19); PLATELET COUNT (AUTO) 448 K/uL (130-400); RED BLOOD CELL COUNT(AUTO) 3.95 MIL/uL (4.50-6.20); WHITE BLOOD COUNT (AUTO) 16.6 K/uL (4.8-10.8)
[2021-02-28 04:37] LABS: ALBUMIN 2.2 g/dL (3.5-5.0); BILIRUBIN,TOTAL 0.5 mg/dL (0.2-1.0); CREATININE 0.8 mg/dL (0.5-1.5); POTASSIUM 3.3 mmol/L (3.5-5.1); TOTAL PROTEIN, SERUM 6.8 g/dL (6.0-8.3)
[2021-02-28] MEDS: DILTIAZEM HCL 60 MG TABLET PO SCH ×3 (04:52→22:03)
[2021-02-28] MEDS: AMOXICILLIN 500 MG CAPSULE PO SCH ×3 (04:52→22:04)
[2021-02-28] MEDS: KCL 20 MEQ ERTAB PO PRN (05:39)
[2021-02-28 07:45] VITALS: BP 112/62
[2021-02-28] MEDS: APIXABAN 5 MG TABLET PO SCH ×3 (08:00→22:04)
[2021-02-28] MEDS: KCL 20 MEQ ERTAB PO SCH (09:00)
[2021-02-28] MEDS: METOPROLOL SUCCINATE 50 MG TAB.SR.24H PO SCH (09:00)
[2021-02-28] MEDS: FUROSEMIDE 40 MG TABLET PO SCH ×2 (09:00→22:03)
[2021-02-28] MEDS: RIFAXIMIN 550 MG TABLET PO SCH ×2 (09:00→22:03)
[2021-02-28] MEDS: FOLIC ACID 1 MG TABLET PO SCH (09:00)
[2021-02-28] MEDS: LACTULOSE 20 GM/30 ML UDCUP PO SCH (09:00)
[2021-02-28] MEDS: MULTIVITAMIN TABLET PO SCH (09:00)
[2021-02-28] MEDS: SPIRONOLACTONE 25 MG TAB PO SCH (09:00)
[2021-02-28] MEDS: OLANZAPINE 5 MG TAB PO SCH ×2 (09:00→22:03)
[2021-02-28] MEDS: METOLAZONE 2.5 MG TABLET PO SCH (09:00)
[2021-02-28] MEDS: PANTOPRAZOLE SODIUM 40 MG TABLET.DR PO SCH (09:00)
[2021-02-28] MEDS: THIAMINE HCL 100 MG/ML 2ML VIAL IVP SCH (09:00)
[2021-02-28 11:45] VITALS: BP 117/63
[2021-02-28 16:00] VITALS: BP 104/71
[2021-02-28 20:00] VITALS: BP 110/71
[2021-03-01] VITALS: BP 120/78
[2021-03-01] MEDS ORDERED: MAG HYDROX/AL HYDROX/SIMETH ES 30 ML SUSP UDCUP PO PRN (00:15)
[2021-03-01 04:00] VITALS: BP 94/69
[2021-03-01] MEDS: AMOXICILLIN 500 MG CAPSULE PO SCH (05:03)
[2021-03-01] MEDS: DILTIAZEM HCL 60 MG TABLET PO SCH (05:04)
[2021-03-01 07:32] VITALS: BP 111/69
[2021-03-01] MEDS: SPIRONOLACTONE 25 MG TAB PO SCH (08:04)
[2021-03-01] MEDS: THIAMINE HCL 100 MG/ML 2ML VIAL IVP SCH (08:04)
[2021-03-01] MEDS: LACTULOSE 20 GM/30 ML UDCUP PO SCH (08:05)
[2021-03-01] MEDS: KCL 20 MEQ ERTAB PO SCH (08:05)
[2021-03-01] MEDS: FUROSEMIDE 40 MG TABLET PO SCH (08:05)
[2021-03-01] MEDS: FOLIC ACID 1 MG TABLET PO SCH (08:05)
[2021-03-01] MEDS: APIXABAN 5 MG TABLET PO SCH (08:05)
[2021-03-01] MEDS: PANTOPRAZOLE SODIUM 40 MG TABLET.DR PO SCH (08:06)
[2021-03-01] MEDS: RIFAXIMIN 550 MG TABLET PO SCH (08:06)
[2021-03-01] MEDS: MULTIVITAMIN TABLET PO SCH (08:06)
[2021-03-01] MEDS: METOPROLOL SUCCINATE 50 MG TAB.SR.24H PO SCH (08:06)
[2021-03-01] MEDS: OLANZAPINE 5 MG TAB PO SCH (08:07)
[2021-03-01] MEDS: METOLAZONE 2.5 MG TABLET PO SCH (08:07)
== END 2021-03-01 06:55 | disposition left against medical advice (07) | DRG 637 ==
LOC: EDH 16:57 → EDHIP 16:58 → OBSVTOIN 16:58 → 4DH 02-19 17:18 → 2DH 02-21 17:31 → 4DH 02-26 21:56
PROVIDERS: ADMIT Internal Medicine; ATTEND Internal Medicine
PROC: 5A09357 Assistance with Respiratory Ventilation, Less than 24 Consecutive Hours, Continuous Positive Airway Pressure (ICD-10-PCS; principal; 2021-02-21)
PROC: 5A09357 Assistance with Respiratory Ventilation, Less than 24 Consecutive Hours, Continuous Positive Airway Pressure (ICD-10-PCS; 2021-02-22)
DX: E11.621 Type 2 diabetes mellitus with foot ulcer (principal); J96.22 Acute and chronic respiratory failure with hypercapnia; J96.21 Acute and chronic respiratory failure with hypoxia; Z68.44 Body mass index [BMI] 60.0-69.9, adult; E87.0 Hyperosmolality and hypernatremia; D68.59 Other primary thrombophilia; E66.2 Morbid (severe) obesity with alveolar hypoventilation; I48.20 Chronic atrial fibrillation, unspecified; I69.354 Hemiplegia and hemiparesis following cerebral infarction affecting left non-dominant side; L03.116 Cellulitis of left lower limb; M86.672 Other chronic osteomyelitis, left ankle and foot; L03.032 Cellulitis of left toe; G92 Toxic encephalopathy; F12.10 Cannabis abuse, uncomplicated; I50.9 Heart failure, unspecified; I48.91 Unspecified atrial fibrillation; W19.XXXA Unspecified fall, initial encounter; I11.0 Hypertensive heart disease with heart failure; E11.69 Type 2 diabetes mellitus with other specified complication; L97.529 Non-pressure chronic ulcer of other part of left foot with unspecified severity; K72.90 Hepatic failure, unspecified without coma; B95.2 Enterococcus as the cause of diseases classified elsewhere; D64.9 Anemia, unspecified; E78.5 Hyperlipidemia, unspecified; E87.6 Hypokalemia; F10.10 Alcohol abuse, uncomplicated; F13.10 Sedative, hypnotic or anxiolytic abuse, uncomplicated; F14.10 Cocaine abuse, uncomplicated; F17.210 Nicotine dependence, cigarettes, uncomplicated; K70.30 Alcoholic cirrhosis of liver without ascites; L97.519 Non-pressure chronic ulcer of other part of right foot with unspecified severity; Z53.20 Procedure and treatment not carried out because of patient's decision for unspecified reasons; Z88.8 Allergy status to other drugs, medicaments and biological substances; Z74.01 Bed confinement status; Z79.01 Long term (current) use of anticoagulants; Z91.19 Patient's noncompliance with other medical treatment and regimen; Z83.3 Family history of diabetes mellitus; Z82.49 Family history of ischemic heart disease and other diseases of the circulatory system
CPT/HCPCS: 36415; 36600; 70450; 71045; 73630; 73718; 76705; 80053; 80074; 80162; 80305; 81001; 82105; 82140; 82435; 82550; 82803; 82947; 83036; 83605; 83735; 83880; 84132; 84145; 84295; 84443; 84484; 85018; 85025; 85027; 85610; 85651; 85730; 86140; 86592; 87040; 87070; 87076; 87077; 87186; 92610; 93005; 93306; 93356; 93925; 94660; 94664; 97039; A4344; G0378; J1630; J1650; J1940; J1956; J2060; J2405; J2543; J3411; J3490